=== PATIENT | male | born 1965 | race Caucasian/White ===

== ENCOUNTER 2020-08-01 09:30 | Emergency (ER) | payer BC, SELFPAY ==
[2020-08-01 09:55] VITALS: BP 153/69; PULSE 83; RESP 16; TEMP 37; O2SAT 99; BMI 38.0
--- NOTE | 2020-08-01 10:21 | HMH.EDUTC ---
[facility] Disposition Clinical Impression: Exposure to COVID-19 virus Disposition: Home, Self-Care Condition on Discharge: Good Instructions: Preventing the Spread of Coronavirus Discharge Instructions Additional Instructions: Drink plenty of fluids. Take tylenol for pain or fever. Follow up with your regular doctor. GO TO THE ER FOR ANY WORSENING SYMPTOMS Referrals: Catarina Sosa PA [Primary Care Provider] - Forms: Work/School Release Time of Disposition: 10:23 Medical Decision Making - Medical Records Medical records reviewed: No: I reviewed the patient's medical records. - Dionte Inquiry Pt receiving controlled substance: No Vital Signs: 08/01/20 09:55 08/01/20 10:33 Temperature 98.6 F 98.6 F Temperature Source Oral Pulse Rate 83 Pulse Rate [Right Brachial] 83 Respiratory Rate 16 16 Blood Pressure 153/69 H Blood Pressure [Right Arm] 153/69 H Blood Pressure Mean [Right Arm] 97 Blood Pressure Source [Right Arm] Automatic Cuff Blood Pressure Position [Right Arm] Sitting 02 Sat by Pulse Oximetry 99 Oxygen Delivery Method Room Air Orders (Tests/Meds): ORDERS Category Date Time Status Covid-19 Nasal PCR Sendout Riky Routine Lab 08/01/20 09:50 Received [facility] HPI - General Stated complaint: covid exposure 2 days ago Time Seen by Provider: 08/01/20 09:55 Mode of Arrival: Ambulatory Source of Information: Patient Limitations: No Limitations Description of Symptoms (Recalled from Triage Doc. by RN): PATIENT REQUESTING COVID TEST D/T EXPOSURE. DENIES SYMPTOMS HEENT Symptoms (Recalled from RN notes): No Resp Symptoms (Recalled from RN notes): No Skin Symptoms (Recalled from RN notes): No MS Symptoms (Recalled from RN notes): No Functional Status (Recalled from RN notes): WNL - History of Present Illness Provider Complaint: He denies any symptoms. He states that 3 days ago he spent almost all day with his uncle, then the next day his uncle came down with covid and now he is very sick and in the hospital. This patient denies any symptoms. - Related Data Allergies Allergy/AdvReac Type Severity Reaction Status Date / Time No Known Allergies Allergy Verified 08/01/20 10:08 - Worker's Comp Is this a Worker's Comp case?: No [facility] History - Hepatitis A Screen Drug use history?: No High risk sexual behaviors?: No History of sexually transmitted infection?: No Currently employed?: No Childcare worker?: No Do you have indoor plumbing?: Yes Do you have electricity?: Yes Attestation statement:: This patient has been screened for Hepatitis A risk factors. I have reviewed the patient's past medical history: Yes - Social History Alcohol Intake: never Occupational Status: other ROS Obtained: Yes All systems reviewed & no additional complaints - Constitutional Constitutional: Reports system reviewed and no additional complaints, except as docu - Eyes Eyes: Reports system reviewed and no additional complaints, except as docu - ENT Ears, Nose, Mouth, and Throat: Reports system reviewed and no additional complaints, except as docu - Cardiovascular Cardiovascular: Reports system reviewed and no additional complaints, except as docu - Respiratory Respiratory: Yes system reviewed and no additional complaints, except as docu - Gastrointestinal Gastrointestingal: Reports: system reviewed and no additional complaints, except as docu Physical Exam - General General appearance: alert, in no apparent distress - Head Head exam: atraumatic, normocephalic, normal inspection - Eye Eye exam: Present: normal appearance, PERRL, EOMI - ENT ENT exam: Present: normal exam, normal oropharynx, mucous membranes moist, TM's normal bilaterally, normal external ear exam - Neck Neck exam: Present: normal inspection, full ROM, trachea midline. Absent: meningismus, lymphadenopathy - Chest Chest inspection: Present: normal inspection, symmetric chest wall rise. Absent:
[2020-08-01 10:33] VITALS: BP 153/69; PULSE 83; RESP 16; TEMP 37; O2SAT 99
[2020-08-02 13:36] LABS: Covid-19 Nasal PCR Sendout Lex NOT DETECTED
== END 2020-08-01 10:35 | disposition home or self-care (01) ==
PROVIDERS: Emergency Provider Nurse Practitioner Family; PCP Physician Assistant Medical
DX: Z20.828 Contact with and (suspected) exposure to other viral communicable diseases (principal)
CPT/HCPCS: 99201; U0004

== ENCOUNTER 2021-01-07 12:50 | Observation (INO) | payer BC, SELFPAY ==
[2021-01-07] VITALS (12 sets, daily range): BP systolic 133–160; BP diastolic 84–105; PULSE 60–90; RESP 14–24; TEMP 36.4–37.3; O2SAT 94–98; BMI 208.2; BMI 34.0
--- NOTE | 2021-01-07 12:53 | HMH.EDCP ---
ED Disposition Clinical Impression: Labored breathing Chest pain Qualifiers: Chest pain type: unspecified Qualified Code(s): R07.9 - Chest pain, unspecified Back pain Qualifiers: Back pain location: low back pain Chronicity: acute Back pain laterality: bilateral Sciatica presence: without sciatica Qualified Code(s): M54.5 - Low back pain Disposition: Admitted as Observation Condition on Discharge: Good Time of Disposition: 17:26 - Critical Care Critical Care Time: No Attestation: On , the high probability of a clinically significant, sudden or life threatening deterioration of the following system(s) required my full and direct attention, intervention and personal management. The time I documented below is in addition to time spent performing reported procedures but includes the following listed in this critical care notation. Medical Decision Making - Dionte Inquiry Pt receiving controlled substance: No Vital Signs: 01/07/21 12:51 01/07/21 13:31 01/07/21 14:01 Temperature 99.1 F Temperature Source Oral Pulse Rate 60 74 Pulse Rate [Radial] 79 Respiratory Rate 24 16 16 Blood Pressure 152/100 H 136/101 H Blood Pressure [Right Arm] 159/99 H Blood Pressure Mean 117 112 Blood Pressure Mean [Right Arm] 119 Blood Pressure Position [Right Arm] Sitting 02 Sat by Pulse Oximetry 98 95 96 Oxygen Delivery Method Room Air 01/07/21 14:19 01/07/21 14:30 01/07/21 15:28 Temperature Temperature Source Pulse Rate 78 81 77 Pulse Rate [Radial] Respiratory Rate 14 18 Blood Pressure 143/88 H 145/84 H 133/100 H Blood Pressure [Right Arm] Blood Pressure Mean 104 96 109 Blood Pressure Mean [Right Arm] Blood Pressure Position [Right Arm] 02 Sat by Pulse Oximetry 96 94 L 96 Oxygen Delivery Method 01/07/21 15:31 Temperature Temperature Source Pulse Rate 69 Pulse Rate [Radial] Respiratory Rate 18 Blood Pressure 155/100 H Blood Pressure [Right Arm] Blood Pressure Mean 114 Blood Pressure Mean [Right Arm] Blood Pressure Position [Right Arm] 02 Sat by Pulse Oximetry 97 Oxygen Delivery Method - Lab Data Lab results reviewed: Yes: I reviewed the patient's lab results. Lab Results 01/07/21 13:00: WBC 12.5 H, RBC 4.98, Hgb 15.5, Hct 46.2, MCV 92.9, MCH 31.2, MCHC 33.5, RDW 13.3, Plt Count 216, MPV 7.4, Neut % (Auto) 77.8, Lymph % (Auto) 17.8, [place] % (Auto) 2.6, Eos % (Auto) 1.2, Baso % (Auto) 0.6, Neut # (Auto) 9.8 H, Lymph # (Auto) 2.2, [place] # (Auto) 0.3, Eos # (Auto) 0.2, Baso # (Auto) 0.1 01/07/21 13:00: Sodium 140, Potassium 3.9, Chloride 107, Carbon Dioxide 27, Anion Gap 9.9, BUN 20, Creatinine 1.00, Estimated Creat Clear -31 L, Estimated GFR 78, Est GFR ( Amer) 95, Glucose 128 H, Calcium 9.8, Total Bilirubin 0.5, AST 32, ALT 41, Alkaline Phosphatase 88, Troponin I < 0.01, Total Protein 7.3, Albumin 4.6, Globulin 2.7, Albumin/Globulin Ratio 1.7 01/07/21 13:00: Urine Color Yellow, Urine Appearance Clear, Urine pH 6.0, Ur Specific [place] 1.025, Urine Protein Negative, Urine Glucose (UA) Negative, Urine Ketones Negative, Urine Blood Negative, Urine Nitrate Negative, Urine Bilirubin Negative, Urine Urobilinogen 1.0, Ur Leukocyte Esterase Negative, Urine RBC None, Urine WBC None, Ur Squamous Epith Cells None, Amorphous Sediment 1+, Urine Bacteria None 01/07/21 15:17: Troponin I < 0.01 01/07/21 15:17: Chlamy pneumoniae PCR Not detected, Adenovirus (PCR) Not detected, B. pertussis DNA (PCR) Not detected, Coronavirus OC43 (PCR) Not detected, Coronavirus HKU1 (PCR) Not detected, Coronavirus 229E (PCR) Not detected, SARS-CoV-2 (PCR) Not detected, Coronavirus NL63 (PCR) Not detected, Human Metapneumovir PCR Not detected, Influenza A (H1) PCR Not detected, Influ A (H1N1/09) PCR Not detected, Influenza A (H3) PCR Not detected, Influenza Type A (PCR) Not detected, Influenza Type B (PCR) Not detected, M. pneumoniae (PCR) Not detected, Parainfluenza 1 (PCR) Not detected, Parainfluenza 2 (PCR)
--- NOTE | 2021-01-07 12:54 | XR_ITS ---
PROCEDURE: XR CHEST PORTABLE CLINICAL HISTORY: cp Chest pain COMPARISON: No exams were available for comparison FINDINGS: The cardiomediastinal silhouette and pulmonary vascularity are within normal limits. The lungs are clear without infiltrates, suspicious nodules, or pleural effusions. No acute bony abnormalities. IMPRESSION: No acute findings. Dictated by: Anish Zabala MD 01/07/2021 13:55 Anish Zabala MD in [facility] 01/07/2021 13:55
[2021-01-07 13:13] LABS: Basophils # 0.1 K/mm3 (0-0.2); Basophils % 0.6 % (0.1-2.0); Eosinophils # 0.2 K/mm3 (0.0-0.4); Eosinophils % 1.2 % (0.1-12.0); Hematocrit 46.2 % (42.0-52.0); Hemoglobin 15.5 g/dL (14.1-18.0); Lymphocytes # 2.2 K/mm3 (0.7-4.5); Lymphocytes % 17.8 % (10-50); Mean Corpuscular HGB Conc 33.5 g/dL (31.8-35.4); Mean Corpuscular Hemoglobin 31.2 pg (27.0-31.2); Mean Corpuscular Volume 92.9 fl (80-94); Mean Platelet Volume 7.4 fl (7.4-10.4); Monocytes # 0.3 K/mm3 (0.1-1.0); Monocytes % 2.6 % (1.7-9.3); Neutrophils # 9.8 K/mm3 (1.8-7.8); Neutrophils % 77.8 % (37.0-80.0); Platelet Count 216 K/mm3 (142-424); Red Blood Count 4.98 M/mm3 (4.60-6.20); Red Cell Distribution Width 13.3 % (11.5-17.5); White Blood Count 12.5 K/mm3 (4.8-10.8)
[2021-01-07 13:18] LABS: Chloride 107 mmol/L (98-107)
[2021-01-07 13:19] LABS: Potassium 3.9 mmoL/L (3.5-5.1); Sodium 140 mmol/L (136-145)
[2021-01-07 13:21] LABS: Blood Urea Nitrogen 20 mg/dl (9-20); Creatinine Clearance Estimated -31 mL/min (50-200); Estimated Glomerular Filt Rate 78 ml/min (>60); GFR (African American) 95 ML/MIN (>60)
[2021-01-07 13:22] LABS: Alanine Aminotransferase 41 U/L (12-78); Albumin Level 4.6 g/dl (3.5-5.0); Albumin/Globulin Ratio 1.7 (1.1-1.8); Alkaline Phosphatase 88 U/L (38-126); Anion Gap 9.9 mEq/L (5-15); Aspartate Amino Transferase 32 U/L (17-59); Bilirubin,Total 0.5 mg/dl (0.2-1.3); Calcium 9.8 mg/dl (8.4-10.2); Carbon Dioxide 27 mmol/L (22.0-30.0); Globulin 2.7 g/dL (1.3-3.2); Glucose 128 mg/dl (74-100); Total Protein,Serum 7.3 g/dl (6.3-8.2)
[2021-01-07 13:37] LABS: Troponin I < 0.01 ng/ml (0.00-0.034)
[2021-01-07 13:43] LABS: Microscopic, Urine URINE MICROSCOPIC (MICROSCOPIC)
[2021-01-07 13:45] LABS: Appearance,Urine CLEAR (Clear); Bilirubin,Urine Negative (Negative); Blood, Urine Negative (Negative); Color,Urine YELLOW (Yellow); Glucose,Urine (UA) Negative (Negative); Ketones,Urine Negative (Negative); Leukocyte Esterase,Urine Negative (Negative); Nitrate,Urine Negative (Negative); Protein,Urine Negative (Negative); Specific Gravity, Urine 1.025 (1.005-1.030)
[2021-01-07 13:52] LABS: Amorphous Sediment,Urine 1+ /lpf
--- NOTE | 2021-01-07 14:14 | CT_ITS ---
PROCEDURE: CT ANGIO CHEST CLINCIAL INDICATION: CP, SOB Chest pain, shortness of breath, smoker COMPARISON: No exams were available for comparison TECHNIQUE: IV Contrast: 70ML Isovue 370 Axial images obtained with sagittal and coronal reformats. All CT scans at the facility use one or more dose reduction, viz: automated exposure control, ma/kV adjustment per patient size (including targeted exams where dose is matched to indication, i.e. head), or iterative reconstruction technique. FINDINGS: HEART AND MEDIASTINAL STRUCTURES: No evidence of pulmonary embolus, aortic aneurysm, or aortic dissection.. Coronary artery calcifications and/or stents noted LUNGS AND PLEURAL SPACES: Unremarkable. BONY STRUCTURES: No acute bony abnormalities apparent. UPPER ABDOMEN: Unremarkable. ADDITIONAL FINDINGS: No other significant abnormalities. IMPRESSION: No acute finding. No evidence of pulmonary embolus. Dictated by: Anish Zabala MD 01/08/2021 06:18 Anish Zabala MD in [facility] 01/08/2021 06:18
--- NOTE | 2021-01-07 14:14 | CT_ITS ---
PROCEDURE: CT ABDOMEN PELVIS W CON CLINICAL INDICATION: kidney pain Pain, kidney pain COMPARISON: No exams were available for comparison TECHNIQUE: IV Contrast: 75ML Isovue 370 Oral Contrast None Axial images obtained with sagittal and coronal reformats. All CT scans at the facility use one or more dose reduction, viz: automated exposure control, ma/kV adjustment per patient size (including targeted exams where dose is matched to indication, i.e. head), or iterative reconstruction technique. FINDINGS: LOWER THORAX: Coronary artery calcification and/or stents ABDOMEN & PELVIS: 12 mm hypodensity right hepatic lobe posteriorly indeterminate. The liver has an otherwise unremarkable appearance. There has been a prior cholecystectomy. Mild splenomegaly at 14 cm. The adrenal glands and pancreas have an unremarkable appearance. No renal or ureteral calculi. No hydronephrosis or renal mass. There is mild thickening of the wall the jejunum proximally. Mild amount of retained colonic feces. There is given history of prior appendectomy. Scattered colonic diverticula noted. No evidence of diverticulitis. No acute bony findings. IMPRESSION: 1. Possible enteritis. 2. 12 mm hypodensity right hepatic lobe incompletely evaluated. MRI with hemangioma protocol may further evaluate. Dictated by: Anish Zabala MD 01/08/2021 06:26 Anish Zabala MD in [facility] 01/08/2021 06:26
--- NOTE | 2021-01-07 15:08 | PC.NURSE ---
PT STILL IN ct
--- NOTE | 2021-01-07 15:28 | PC.NURSE ---
PT UNABLE TO GIVEN LIST OF MEDICATIONS. CALLED PT'S PHARMACY, [facility], CLOSED TODAY
[2021-01-07 15:30] LABS: Adenovirus,PCR Not Detected (NotDetected); Bordetella Pertussis Not Detected (NotDetected); Chlamydophila Pneumoniae, PCR Not Detected (NotDetected); Coronavirus 19, PCR Not Detected (NotDetected); Coronavirus 229E Not Detected (NotDetected); Coronavirus NL63 Not Detected (NotDetected); Coronavirus OC43 Not Detected (NotDetected); Coronovirus HKU1,PCR Not Detected (NotDetected); Human Metapneumovirus Not Detected (NotDetected); Influenza A, PCR Not Detected (NotDetected); Influenza AH1, 2009 Not Detected (NotDetected); Influenza AH1, PCR Not Detected (NotDetected); Influenza AH3,PCR Not Detected (NotDetected); Influenza B, PCR Not Detected (NotDetected); Mycoplasma Pneumoniae, PCR Not Detected (NotDetected); Parainfluenza 1, PCR Not Detected (NotDetected); Parainfluenza 2, PCR Not Detected (NotDetected); Parainfluenza 3, PCR Not Detected (NotDetected); Parainfluenza 4, PCR Not Detected (NotDetected); Respiratory Syncytial Virus Not Detected (NotDetected); Rhinovirus/Enterovirus Not Detected (NotDetected)
[2021-01-07 15:55] LABS: Troponin I < 0.01 ng/ml (0.00-0.034)
--- NOTE | 2021-01-07 16:00 | PC.NURSE ---
PT DENIES ANY RELIEF OF SYMPTOMS
--- NOTE | 2021-01-07 16:59 | PC.NURSE ---
Dr Holguin speaking with Dr Ball for admission.
--- NOTE | 2021-01-07 17:20 | PC.NURSE ---
REPORT CALLED TO FLOOR
[2021-01-07 17:29] LABS: Procalcitonin 0.062 ng/mL (0.0-2.0)
--- NOTE | 2021-01-07 18:35 | PC.NURSE ---
This nurse was unable to perform pt's med rec. Pt is not aware of his home medications, pt states I take something for blood pressure, but I can't remember. Pt lives in [place] and has nobody to bring his home medications for verification.
--- NOTE | 2021-01-07 19:11 | PC.NURSE ---
THIS RN PROVIDED WC REPORT TO TATO BARRERA.
[2021-01-07 19:21] LABS: Troponin I < 0.01 ng/ml (0.00-0.034)
[2021-01-08] VITALS (11 sets, daily range): BP systolic 110–160; BP diastolic 66–95; PULSE 61–84; RESP 16–24; TEMP 36.5–36.9; O2SAT 96–98; BMI 34.2
--- NOTE | 2021-01-08 04:01 | PC.NURSE ---
A&OX4. PT TOLERATING RA WELL. PT HAS C/O CONTINUOUS PAIN IN HIS CHEST AND BACK, WHICH INCREASES WITH COUGH. PT HAS DRY INTERMITTENT COUGH T/O SHIFT. PT HAS HAD NO OTHER C/O THUS FAR. PT RESTING IN BED AT THIS TIME. VSS WILL CONTINUE TO MONITOR.
--- NOTE | 2021-01-08 06:34 | HMH.HP ---
*Admission Date: 01/07/21 *Chief complaint: Chest and back pain *History of present illness: 55-year-old male with history of coronary artery disease, hypertension, COPD presented to the emergency department with chest and back pain along with difficulty breathing that have been present for approximately 24 hours. 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 He also noted pain radiating down into his kidneys . Patient has hypertension but cannot name his medicines. Patient has COPD and uses a rescue inhaler. He presented to our emergency department. He underwent a work-up that was essentially negative. However patient still looked quite labored in regards to his respiratory effort and decision was made to keep him for observation. Patient reports a history of COPD and having seen multiple pulmonologists over the last several years. He reports he has been told area gets to the top of his lungs but not the bottom . Patient smokes 4 to 5 cigarettes/day and has since the age of 18 [facility] History I have reviewed the patient's past medical history: Yes Medical History: Reports:: Atherosclerotic Heart Disease, Chronic Obstructive Pulmonary Disease (COPD), Coronary Artery Disease, Hyperlipidemia, Hypertension Denies:: Cancer, Diabetes Mellitus Type 1, Diabetes Mellitus Type 2, MRSA *Have you ever received a pneumonia vaccine?: No *Have you received a flu vaccine this season?: No Laterality Cases: Right: Carpal Tunnel Release Other Surgeries: Yes: Appendectomy, Cardiac Catheterization, Cholecystectomy, Colonoscopy Amputation: No - *Social History Last grade of school completed: 11th or 12th Smoking Status: Current every day smoker Tobacco Type: cigarettes # Packs/Day (cigarettes): 1 Alcohol Intake: current Alcohol Intake Frequency:: holidays/special occasions only *Occupational Status:: employed *Travel in the last 8 weeks: None Family Hx:: Asthma, Cancer, Heart Attack, Hyperlipidemia, Hypertension Review of Systems - Constitutional Reports body ache(s), Reports lack of energy, Denies anorexia, Denies chills, Denies malaise, Denies night sweats - Eyes Denies change in vision - ENT Denies difficulty swallowing - *Cardiovascular Reports chest pain at rest - *Respiratory Reports chest congestion, Reports cough, Reports shortness of breath, Denies change in phlegm color - *Gastrointestinal Denies abdominal pain, Denies belching, Denies bloating, Denies heartburn - *Genitourinary Denies blood in urine - *Musculoskeletal Denies joint pain - *Neurologic Denies abnormal walking Meds Home Medications Medication Instructions Recorded Confirmed Type Unobtainable 01/07/21 01/07/21 History Allergies Allergy/AdvReac Type Severity Reaction Status Date / Time No Known Allergies Allergy Verified 08/01/20 10:08 Exam Vital signs and Labs for Last 24 Hours: Temp Pulse Resp BP Pulse Ox 97.7 F 80 20 110/66 98 01/08/21 03:58 01/08/21 04:00 01/08/21 03:58 01/08/21 03:58 01/08/21 03:58 Laboratory Results - last 24 hr 01/07/21 13:00: WBC 12.5 H, RBC 4.98, Hgb 15.5, Hct 46.2, MCV 92.9, MCH 31.2, MCHC 33.5, RDW 13.3, Plt Count 216, MPV 7.4, Neut % (Auto) 77.8, Lymph % (Auto) 17.8, [place] % (Auto) 2.6, Eos % (Auto) 1.2, Baso % (Auto) 0.6, Neut # (Auto) 9.8 H, Lymph # (Auto) 2.2, [place] # (Auto) 0.3, Eos # (Auto) 0.2, Baso # (Auto) 0.1 01/07/21 13:00: Sodium 140, Potassium 3.9, Chloride 107, Carbon Dioxide 27, Anion Gap 9.9, BUN 20, Creatinine 1.00, Estimated Creat Clear -31 L, Estimated GFR 78, Est GFR ( Amer) 95, Glucose 128 H, Calcium 9.8, Total Bilirubin 0.5, AST 32, ALT 41, Alkaline Phosphatase 88, Troponin I < 0.01, Total Protein 7.3, Albumin 4.6, Globulin 2.7, Albumin/Globulin Ratio 1.7 01/07/21 13:00: Urine Color Yellow, Urine Appearance Clear, Urine pH 6.0, Ur Specific [place] 1.025, Urine P
[2021-01-08 06:35] LABS: Chloride 106 mmol/L (98-107); Sodium 140 mmol/L (136-145)
[2021-01-08 06:36] LABS: Potassium 3.9 mmoL/L (3.5-5.1)
[2021-01-08 06:39] LABS: Blood Urea Nitrogen 18 mg/dl (9-20); Carbon Dioxide 29 mmol/L (22.0-30.0); Creatinine Clearance Estimated 167 mL/min (50-200); Estimated Glomerular Filt Rate 101 ml/min (>60); GFR (African American) 122 ML/MIN (>60); Glucose 107 mg/dl (74-100)
[2021-01-08 06:41] LABS: Basophils # 0.1 K/mm3 (0-0.2); Basophils % 0.5 % (0.1-2.0); Eosinophils # 0.3 K/mm3 (0.0-0.4); Eosinophils % 2.2 % (0.1-12.0); Hemoglobin 15.1 g/dL (14.1-18.0); Lymphocytes # 2.9 K/mm3 (0.7-4.5); Lymphocytes % 25.8 % (10-50); Mean Corpuscular HGB Conc 33.5 g/dL (31.8-35.4); Mean Corpuscular Hemoglobin 31.5 pg (27.0-31.2); Mean Corpuscular Volume 94.2 fl (80-94); Mean Platelet Volume 7.5 fl (7.4-10.4); Monocytes # 0.4 K/mm3 (0.1-1.0); Monocytes % 3.2 % (1.7-9.3); Neutrophils # 7.7 K/mm3 (1.8-7.8); Neutrophils % 68.3 % (37.0-80.0); Platelet Count 233 K/mm3 (142-424); Red Blood Count 4.78 M/mm3 (4.60-6.20); Red Cell Distribution Width 13.5 % (11.5-17.5); White Blood Count 11.3 K/mm3 (4.8-10.8)
--- NOTE | 2021-01-08 06:53 | HMH.PHAVTE ---
[facility] VTE Monitoring - Patient Demographics Admission date: 01/07/21 Report Date: 01/08/21 Time: 06:53 Allergies/Adverse Reactions: Patient Allergies No Known Allergies Allergy (Verified 08/01/20 10:08) Height: 1.8 m Weight: 110.79 kg Patient Problems: Current Active Problems Chest pain (Acute) Back pain (Acute) Labored breathing (Acute) COPD exacerbation (Acute) Coronary artery disease (Acute) Hypertension (Acute) - VTE Risk Labs: VTE Related Lab Results Hgb 15.5 g/dL (14.1-18.0) 01/07/21 13:00 Hct 46.2 % (42.0-52.0) 01/07/21 13:00 Plt Count 216 K/mm3 (142-424) 01/07/21 13:00 BUN 18 mg/dl (9-20) 01/08/21 05:58 Creatinine 0.80 mg/dl (0.66-1.25) 01/08/21 05:58 Estimated Creat Clear 167 mL/min (50-200) 01/08/21 05:58 VTE Score: 4 VTE Risk Level: Low Risk - Prophylaxis VTE Prophylaxis Ordered?: Yes Types of VTE Prophylaxis: IPCS Thigh High, Pharmacological Location of Applied Device: Bilateral Lower Extremeties Pharmacologic Type: Enoxaparin
--- NOTE | 2021-01-08 10:47 | HMH.PHAINT ---
MEDICATION RECONCILIATION COMPLETED ON PATIENT USING EXTERNAL FILL HISTORY FROM PHARMACY, CALLING [facility] IN [facility], AND PATIENT INTERVIEW. -MELVIN ROSSID
--- NOTE | 2021-01-08 12:51 | ECG_ITS ---
APPROVED REPORT Exam: Resting ECG HR:76 bpm ECG Measurements Heart Rate 76 AXES MN 156 P 35 QRSd 90 QRS 60 QT 364 T 14 QTc 409 Conclusion Normal sinus rhythm Normal ECG Electronically signed by : Christopher Salcedo, 01/11/2021 14:01:53
--- NOTE | 2021-01-08 19:26 | PC.NURSE ---
pt had an ok today. ambulates independently t/o room. pt has no new complaints. still sob but better than this am, and still has the chest pain when coughing. vss. will cont. to monitor.
[2021-01-09 02:03] VITALS: PULSE 70
--- NOTE | 2021-01-09 02:42 | PC.NURSE ---
Pt currently sleeping at this time. Pt has c/o soa and a headache this shift. Medicated per nov. Breathing Tx Q4 via RT. A fan was placed in room for comfort. Pt stated that it has helped some. Room is saturated with cologne that pt continues to spray. Pt educated on prior shift by nurse and RT the need decrease use. Reinforcement needed. Pt remains on RA. Lungs noted to be diminished with some scattered expiratory wheezing noted. BS active. No other concerns. Will continue to monitor.
[2021-01-09 04:00] VITALS: BP 148/90; PULSE 85; RESP 20; TEMP 36.4
[2021-01-09 06:00] VITALS: BMI 34.3
[2021-01-09 06:33] VITALS: PULSE 80; PULSE 81
--- NOTE | 2021-01-09 06:54 | HMH.DCSUM ---
General - General Admission date:: 01/07/21 Discharge date: 01/09/21 HPI HPI: 55-year-old male with history of coronary artery disease, hypertension, COPD presented to the emergency department with chest and back pain along with difficulty breathing that have been present for approximately 24 hours. 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 He also noted pain radiating down into his kidneys . Patient has hypertension but cannot name his medicines. Patient has COPD and uses a rescue inhaler. He presented to our emergency department. He underwent a work-up that was essentially negative. However patient still looked quite labored in regards to his respiratory effort and decision was made to keep him for observation. Patient reports a history of COPD and having seen multiple pulmonologists over the last several years. He reports he has been told area gets to the top of his lungs but not the bottom . Patient smokes 4 to 5 cigarettes/day and has since the age of 18 Hospital Course Hospital Course: Patient was admitted for observation. On the morning of the patient was found to be wheezing with increased respiratory effort. He claimed a history of COPD and was diagnosed to COPD exacerbation. Patient was started on Solu-Medrol and duo nebs as well as IV azithromycin. Within 24 hours patient had significantly improved and while he still complained of feeling very tired with body aches he had improved airflow and wheezing had resolved. Patient was discharged home. He was told not to work the rest of the week. He will follow-up with his primary care physician this week. Objective Vital signs: Temp Pulse Resp BP Pulse Ox 97.6 F 81 20 148/90 H 98 01/09/21 04:00 01/09/21 06:33 01/09/21 04:00 01/09/21 04:00 01/08/21 20:00 no acute distress - *Routine Respiratory Exam Present: CTA bilaterally - *Routine Cardiovascular Exam Present: RRR Results Labs on day of discharge: Labs from last 24 hours 01/08/21 01/08/21 05:58 05:58 WBC 11.3 H RBC 4.78 Hgb 15.1 Hct 45.0 MCV 94.2 H MCH 31.5 H MCHC 33.5 RDW 13.5 Plt Count 233 MPV 7.5 Neut % (Auto) 68.3 Lymph % (Auto) 25.8 [place] % (Auto) 3.2 Eos % (Auto) 2.2 Baso % (Auto) 0.5 Neut # (Auto) 7.7 Lymph # (Auto) 2.9 [place] # (Auto) 0.4 Eos # (Auto) 0.3 Baso # (Auto) 0.1 Anion Gap 5.0 DS: Diagnosis - Discharge Diagnosis (1) COPD exacerbation Status: Acute (2) Coronary artery disease Status: Acute (3) Hypertension Status: Acute Discharge Plan - Patient Discharge Instructions ACTIVITY: Continue current activity DIET: continue same diet Patient Instructions: DI for Chronic Obstructive Pulmonary Disease, DI for High Blood Pressure, DI for Chest Pain, Reasons to Quit Smoking, How to Quit Smoking - Follow up Plan Unknown provider or service follow up:: 01/09/21 06:56 Your Primary Care Physician Disposition: Home, Self-Long-Term Medications: Home Medications Medication Instructions Recorded Confirmed Type Aspirin [Aspirin 81mg EC Tab] 81 mg PO DAILY 01/08/21 01/08/21 History Isosorbide Mononitrate [Isosorbide 30 mg PO DAILY 01/08/21 01/08/21 History Mononitrate ER] lisinopriL [Zestril 10mg Tab] 10 mg PO DAILY 01/08/21 01/08/21 History Albuterol Sulfate [Albuterol 18 gm IH Q4HP PRN #1 hfa.aer.ad 01/09/21 Rx Sulfate Hfa] Azithromycin 250 mg PO DAILY #3 tab 01/09/21 Rx predniSONE [Prednisone 20mg 40 mg PO DAILY #10 tab 01/09/21 Rx Tab] Prescriptions/Medication Reconciliation: New Albuterol Sulfate [Albuterol Sulfate Hfa] 18 gm IH Q4HP PRN #1 hfa.aer.ad PRN Reason: Shortness Of Breath Or Wheezing Azithromycin 250 mg PO DAILY #3 tab predniSONE [Prednisone 20mg Tab] 40 mg PO DAILY #10 tab Continued
[2021-01-09 08:00] VITALS: BP 147/80; PULSE 75; RESP 18; TEMP 36.7; O2SAT 97
== END 2021-01-09 10:41 | disposition home or self-care (01) ==
LOC: ER 13:37 → 2ND 17:27
PROVIDERS: Admitting Provider Family Medicine; Emergency Provider Family Medicine; PCP Surgery Surgical Oncology; Visit Provider Family Medicine
DX: J44.1 Chronic obstructive pulmonary disease with (acute) exacerbation (principal); I25.10 Atherosclerotic heart disease of native coronary artery without angina pectoris; I10 Essential (primary) hypertension; Z72.0 Tobacco use; Z79.899 Other long term (current) drug therapy
CPT/HCPCS: 36415; 71045; 71275; 74177; 80048; 80053; 81001; 84145; 84484; 85025; 87581; 87633; 87798; 93005; 94640; 99284; G0378; J0456; Q9967

== ENCOUNTER 2021-08-19 12:06 | Emergency (ER) | payer BC, SELFPAY ==
[2021-08-19 14:54] VITALS: BP 149/93; PULSE 71; RESP 16; O2SAT 98; BMI 32.8
--- NOTE | 2021-08-19 14:58 | HMH.EDUTC ---
[facility] [place] Disposition Clinical Impression: Viral syndrome COPD (chronic obstructive pulmonary disease) Qualifiers: COPD type: unspecified COPD Qualified Code(s): J44.9 - Chronic obstructive pulmonary disease, unspecified Disposition: Home, Self-Care Condition on Discharge: Good Instructions: Chronic Obstructive Pulmonary Disease, DI for COVID-19 (Suspected or Confirmed ), Preventing the Spread of Coronavirus Discharge Instructions Additional Instructions: Drink plenty of fluids. Take tylenol or ibuprofen for pain or fever. Take the medications as directed. Follow up with your regular doctor. The cough medication (promethazine dm) will make you drowsy, so don't drive or operate heavy machinery after taking it. GO TO THE ER FOR ANY WORSENING SYMPTOMS Quarantine until you know the results of your covid-19 test. If it is positive, the health department should call you and give you further instructions about your length of Quarantine and other things. Notify your school or workplace of your results and follow their instructions regarding return to work/school. Prescriptions: Albuterol Sulfate [Albuterol Sulfate Hfa] 2 puffs IH Q6HP PRN 30 Days #1 each PRN Reason: Shortness Of Breath Transmission Status: Received by [employer] # Promethazine/Dextromethorphan [Promethazine-Dm Syrup] 5 ml PO Q6HP PRN #240 ml PRN Reason: Cough Transmission Status: Received by [employer] # methylPREDNISolone [Medrol] 4 mg PO DIRECTED 6 Days #21 packet Transmission Status: Received by [employer] # Azithromycin [Z-Justus 250mg Tab*] 250 mg PO UD DOSE PK #6 tab Transmission Status: Received by [employer] # Referrals: Provider,Referral, [Primary Care Provider] - Forms: Work/School Release Time of Disposition: 15:08 Medical Decision Making - Medical Records Medical records reviewed: No: I reviewed the patient's medical records. - Dionte Inquiry Pt receiving controlled substance: No Vital Signs: 08/19/21 14:54 08/19/21 15:16 Temperature 98.3 F Pulse Rate 71 Pulse Rate [Right Brachial] 71 Respiratory Rate 16 18 Blood Pressure 149/93 H Blood Pressure [Right Arm] 149/93 H Blood Pressure Mean [Right Arm] 111 Blood Pressure Source [Right Arm] Automatic Cuff Blood Pressure Position [Right Arm] Sitting 02 Sat by Pulse Oximetry 98 Oxygen Delivery Method Room Air Room Air - Lab Data Lab results reviewed: Yes: I reviewed the patient's lab results. Orders (Tests/Meds): ED MEDICATIONS Discontinued Medications Generic Name Dose Route Start Last Admin Trade Name Freq PRN Reason Stop Dose Admin Acetaminophen 1,000 mg 08/19/21 15:10 Acetaminophen 500mg Tab PO 08/19/21 15:11 ONCE ONE Acetaminophen 975 mg 08/19/21 15:13 08/19/21 15:15 Acetaminophen 325mg Tab PO 08/19/21 15:14 975 mg ONCE ONE Administration [facility] [place] HPI - General Stated complaint: covid test/symptoms Time Seen by Provider: 08/19/21 15:02 - History of Present Illness Provider Complaint: He states that he has been feeling bad since night before last. He was trying to go to work when he was noted to have a fever. He was sent home. Since then he has had sore throat, cough, chest congestion and body aches. - Related Data Home Medications Medication Instructions Recorded Confirmed Aspirin [Aspirin 81mg EC Tab] 81 mg PO DAILY 01/08/21 01/08/21 Isosorbide Mononitrate [Isosorbide 30 mg PO DAILY 01/08/21 01/08/21 Mononitrate ER] lisinopriL [Zestril 10mg Tab] 10 mg PO DAILY 01/08/21 01/08/21 Previous Rx's Medication Instructions Recorded Albuterol Sulfate [Albuterol 18 gm IH Q4HP PRN #1 hfa.aer.ad 01/09/21 Sulfate Hfa] Azithromycin 250 mg PO DAILY #3 tab 01/09/21 predniSONE [Prednisone 20mg 40 mg PO DAILY #10 tab 01/09/21 Tab] Albuterol Sulfate [Albuterol 2 puffs IH Q6HP PRN 30 Days #1 each 08/19/21 Sulfate Hfa]
[2021-08-19 15:16] VITALS: BP 149/93; PULSE 71; RESP 18; TEMP 36.8; O2SAT 98
== END 2021-08-19 15:15 | disposition home or self-care (01) ==
PROVIDERS: Emergency Provider Nurse Practitioner Family
DX: B34.9 Viral infection, unspecified (principal); J44.9 Chronic obstructive pulmonary disease, unspecified; J02.9 Acute pharyngitis, unspecified; I25.10 Atherosclerotic heart disease of native coronary artery without angina pectoris; E78.5 Hyperlipidemia, unspecified; I10 Essential (primary) hypertension; F17.210 Nicotine dependence, cigarettes, uncomplicated; Z79.899 Other long term (current) drug therapy
CPT/HCPCS: 99202; C9803; G0463; U0003; U0005

== ENCOUNTER 2021-08-28 11:53 | Emergency (ER) | payer BC, SELFPAY ==
--- NOTE | 2021-08-28 12:06 | XR_ITS ---
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 ; Additional info: Accident TECHNIQUE: Imaging protocol: XR Left tibia and fibula. Views: 2 views. COMPARISON: CR XR ANKLE LT MIN 3V 08/28/2021 12:28 PM FINDINGS: Bones/joints: No acute fracture or malalignment. Soft tissues: Normal. IMPRESSION: No acute fracture or malalignment.
--- NOTE | 2021-08-28 12:06 | XR_ITS ---
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 ; Additional info: Accident TECHNIQUE: Imaging protocol: XR Left foot. Views: 3 or more views. COMPARISON: No relevant prior studies available. FINDINGS: Bones/joints: No acute fracture or malalignment. Mild 1st MTP joint degenerative changes. Soft tissues: Normal. IMPRESSION: No acute fracture or malalignment.
--- NOTE | 2021-08-28 12:06 | XR_ITS ---
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 ; Additional info: Accident TECHNIQUE: Imaging protocol: XR Left ankle. Views: 3 or more views. COMPARISON: CR XR FOOT LT MIN 3V 08/28/2021 12:27 PM FINDINGS: Bones/joints: No acute fracture or malalignment. Joint spaces are maintained. Soft tissues: Normal. IMPRESSION: No acute fracture or malalignment.
[2021-08-28 13:05] VITALS: BP 163/83; PULSE 82; RESP 18; TEMP 36.8; O2SAT 96; BMI 34.4
--- NOTE | 2021-08-28 13:38 | HMH.EDUTC ---
[facility] [place] Impression: Left ankle sprain Qualifiers: Encounter type: initial encounter Involved ligament of ankle: posterior talofibular ligament Qualified Code(s): S93.492A - Sprain of other ligament of left ankle, initial encounter Disposition: Home, Self-Care Condition on Discharge: Good Instructions: DI for Ankle Sprain Additional Instructions: Rest, ice, compression and elevation with foot in boot at all times except when sleeping. He can take oxycodone as needed every 4 hours for severe pain. You can take Tylenol and ibuprofen every 8 hours [id number]. Follow-up with orthopedics later this week with Dr. Gold. Prescriptions: methocarbamoL [Methocarbamol] 1,000 mg PO TID PRN 10 Days #30 tab PRN Reason: Moderate Pain Transmission Status: Received by [employer] #[id number] Oxycodone HCl [Oxycodone 5mg tab (IR)] 5 mg PO Q4H PRN #12 tab PRN Reason: Severe Pain Prescription Printed Referrals: Abrahan Gold MD [Staff Physician] - 3 days Forms: Work/School Release Medical Decision Making - Medical Records Medical records reviewed: No: I reviewed the patient's medical records. - Dionte Inquiry Pt receiving controlled substance: No Vital Signs: 08/28/21 13:05 08/28/21 14:40 08/28/21 20:28 Temperature 98.3 F 98.6 F Temperature Source Oral Pulse Rate 73 Pulse Rate [Left] 82 73 Respiratory Rate 18 17 17 Blood Pressure 163/80 H Blood Pressure [Right Arm] 163/83 H Blood Pressure Mean [Right Arm] 109 02 Sat by Pulse Oximetry 96 97 Oxygen Delivery Method Room Air Room Air - Lab Data Lab Results 08/28/21 18:35: WBC 11.2 H, RBC 5.02, Hgb 15.9, Hct 46.4, MCV 92.3, MCH 31.6 H, MCHC 34.2, RDW 13.2, Plt Count 280, MPV 7.8, Neut % (Auto) 72.7, Lymph % (Auto) 21.3, [place] % (Auto) 3.3, Eos % (Auto) 2.1, Baso % (Auto) 0.6, Neut # (Auto) 8.2 H, Lymph # (Auto) 2.4, [place] # (Auto) 0.4, Eos # (Auto) 0.2, Baso # (Auto) 0.1 08/28/21 18:35: Sodium 139, Potassium 3.9, Chloride 101, Carbon Dioxide 29, Anion Gap 12.9, BUN 13, Creatinine 0.80, Estimated Creat Clear 163, Estimated GFR 101, Est GFR ( Amer) 122, Glucose 89, Calcium 9.5, Total Creatine Kinase 228 H Result diagrams: 08/28/21 18:35 08/28/21 18:35 Orders (Tests/Meds): ED MEDICATIONS Discontinued Medications Generic Name Dose Route Start Last Admin Trade Name Freq PRN Reason Stop Dose Admin Iopamidol 100 ml 08/28/21 19:06 08/28/21 19:06 Iopamidol-370 (76%);100ml Bottle IV 08/28/21 19:07 100 ml ONCE ONE Administration Morphine Sulfate 4 mg 08/28/21 17:01 08/28/21 18:44 Morphine 4mg/Ml Syringe IV 08/28/21 17:02 4 mg ONCE ONE Administration Ondansetron HCl 4 mg 08/28/21 17:56 08/28/21 18:44 Ondansetron 4mg/2ml Vial IV 08/28/21 17:57 4 mg ONCE ONE Administration Oxycodone/Acetaminophen 1 each 08/28/21 15:31 08/28/21 15:34 Oxycodone 10mg W/Apap 325mg Tablet PO 08/28/21 15:32 1 each ONCE ONE Administration Sodium Chloride 50 ml 08/28/21 19:06 08/28/21 19:06 0.9 % Sodium Chloride 50 Ml Vial IV 08/28/21 19:07 50 ml ONCE ONE Administration Sodium Chloride 10 ml 08/28/21 19:06 08/28/21 19:06 Sodium Chloride 0.9% 10ml Syr (Rad Only) IV 08/28/21 19:07 10 ml ONCE ONE Administration [facility] [place] - General Stated complaint: WC 08/28 accident lt ankle pain Time Seen by Provider: 08/28/21 13:25 Mode of Arrival: Ambulatory Source of Information: Patient Limitations: No Limitations Description of Symptoms (Recalled from Triage Doc. 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 pt is in severe pain. 07/08. HEENT Symptoms (Recalled from RN notes): No Resp Symptoms (Recalled from RN notes): No Skin Symptoms (Recalled from RN notes): No MS Symptoms (Recalled from RN notes): Yes (L ankle and tib/fib pain) Functional Status (Recalled from RN notes): wnl - History of Present Illness Provider Complaint: pt c/o L a
--- NOTE | 2021-08-28 13:52 | PC.NURSE ---
report given to DARRION RN. ER will notify us when a bed is available.
[2021-08-28 14:40] VITALS: PULSE 73; RESP 17; O2SAT 97; BMI 34.3
--- NOTE | 2021-08-28 17:57 | PC.NURSE ---
Dr Gold at bedside
--- NOTE | 2021-08-28 18:27 | CT_ITS ---
PROCEDURE INFORMATION: Exam: CT Left Lower Extremity With Contrast; Lower Leg Exam date and time: 08/28/2021 6:27 PM Age: 56 years old Clinical indication: Pain; Lower leg; Left; Prior surgery; Additional info: Severe lower extremity pain S/P ankle injury TECHNIQUE: Imaging protocol: CT of the Left lower extremity with intravenous contrast was performed. Exam focused on the lower leg. Radiation optimization: All CT scans at this facility use at least one of these dose optimization techniques: automated exposure control; mA and/or kV adjustment per patient size (includes targeted exams where dose is matched to clinical indication); or iterative reconstruction. Contrast material: ISOVUE; Contrast volume: 100 ml; Contrast route: IV; COMPARISON: CR XR TIBIA FIBULA LT 2V 08/28/2021 12:29 PM FINDINGS: Bones/joints: Cortical irregularity and lucency involving the distal fibula likely reflecting chronic injury. No acute fracture or dislocation. No acute fracture or dislocation. Soft tissues: Normal. IMPRESSION: No acute fracture or dislocation.
[2021-08-28 18:47] LABS: Basophils # 0.1 K/mm3 (0-0.2); Basophils % 0.6 % (0.1-2.0); Eosinophils # 0.2 K/mm3 (0.0-0.4); Eosinophils % 2.1 % (0.1-12.0); Hematocrit 46.4 % (42.0-52.0); Hemoglobin 15.9 g/dL (14.1-18.0); Lymphocytes # 2.4 K/mm3 (0.7-4.5); Lymphocytes % 21.3 % (10-50); Mean Corpuscular HGB Conc 34.2 g/dL (31.8-35.4); Mean Corpuscular Hemoglobin 31.6 pg (27.0-31.2); Mean Corpuscular Volume 92.3 fl (80-94); Mean Platelet Volume 7.8 fl (7.4-10.4); Monocytes # 0.4 K/mm3 (0.1-1.0); Monocytes % 3.3 % (1.7-9.3); Neutrophils # 8.2 K/mm3 (1.8-7.8); Neutrophils % 72.7 % (37.0-80.0); Platelet Count 280 K/mm3 (142-424); Red Blood Count 5.02 M/mm3 (4.60-6.20); Red Cell Distribution Width 13.2 % (11.5-17.5); White Blood Count 11.2 K/mm3 (4.8-10.8)
[2021-08-28 18:52] LABS: Chloride 101 mmol/L (98-107); Potassium 3.9 mmoL/L (3.5-5.1); Sodium 139 mmol/L (136-145)
[2021-08-28 18:54] LABS: Blood Urea Nitrogen 13 mg/dl (9-20); Creatinine Clearance Estimated 163 mL/min (50-200); Estimated Glomerular Filt Rate 101 ml/min (>60); GFR (African American) 122 ML/MIN (>60)
[2021-08-28 18:55] LABS: Anion Gap 12.9 mEq/L (5-15); Calcium 9.5 mg/dl (8.4-10.2); Carbon Dioxide 29 mmol/L (22.0-30.0); Creatine Kinase 228 U/L (55-170); Glucose 89 mg/dl (74-100)
--- NOTE | 2021-08-28 19:02 | PC.NURSE ---
BACK FROM CT
[2021-08-28 20:28] VITALS: BP 163/80; PULSE 73; RESP 17; TEMP 37
--- NOTE | 2021-08-28 20:33 | HMH.EDGENADL ---
ED Disposition Clinical Impression: Left ankle sprain Qualifiers: Encounter type: initial encounter Involved ligament of ankle: posterior talofibular ligament Qualified Code(s): S93.492A - Sprain of other ligament of left ankle, initial encounter Disposition: Home, Self-Care Condition on Discharge: Fair Instructions: DI for Ankle Sprain Additional Instructions: Rest, ice, compression and elevation with foot in boot at all times except when sleeping. He can take oxycodone as needed every 4 hours for severe pain. You can take Tylenol and ibuprofen every 8 hours [id number]. Follow-up with orthopedics later this week with Dr. Gold. Referrals: Abrahan Gold MD [Staff Physician] - 3 days Time of Disposition: 20:42 - Critical Care Critical Care Time: No Attestation: On 08/28/21, the high probability of a clinically significant, sudden or life threatening deterioration of the following system(s) required my full and direct attention, intervention and personal management. The time I documented below is in addition to time spent performing reported procedures but includes the following listed in this critical care notation. Medical Decision Making - Medical Records Medical records reviewed: Yes: I reviewed the patient's medical records. - Dionte Inquiry Pt receiving controlled substance: Yes Dionte was queried for this patient: Yes Risks and benefits of using a controlled substance: were discussed with pt by me Vital Signs: 08/28/21 13:05 08/28/21 14:40 Temperature 98.3 F Temperature Source Oral Pulse Rate [Left] 82 73 Respiratory Rate 18 17 Blood Pressure [Right Arm] 163/83 H Blood Pressure Mean [Right Arm] 109 02 Sat by Pulse Oximetry 96 97 Oxygen Delivery Method Room Air - Lab Data Lab Results 08/28/21 18:35: WBC 11.2 H, RBC 5.02, Hgb 15.9, Hct 46.4, MCV 92.3, MCH 31.6 H, MCHC 34.2, RDW 13.2, Plt Count 280, MPV 7.8, Neut % (Auto) 72.7, Lymph % (Auto) 21.3, [place] % (Auto) 3.3, Eos % (Auto) 2.1, Baso % (Auto) 0.6, Neut # (Auto) 8.2 H, Lymph # (Auto) 2.4, [place] # (Auto) 0.4, Eos # (Auto) 0.2, Baso # (Auto) 0.1 08/28/21 18:35: Sodium 139, Potassium 3.9, Chloride 101, Carbon Dioxide 29, Anion Gap 12.9, BUN 13, Creatinine 0.80, Estimated Creat Clear 163, Estimated GFR 101, Est GFR ( Amer) 122, Glucose 89, Calcium 9.5, Total Creatine Kinase 228 H Result diagrams: 08/28/21 18:35 08/28/21 18:35 Orders (Tests/Meds): ED MEDICATIONS Discontinued Medications Generic Name Dose Route Start Last Admin Trade Name Freq PRN Reason Stop Dose Admin Iopamidol 100 ml 08/28/21 19:06 08/28/21 19:06 Iopamidol-370 (76%);100ml Bottle IV 08/28/21 19:07 100 ml ONCE ONE Administration Morphine Sulfate 4 mg 08/28/21 17:01 08/28/21 18:44 Morphine 4mg/Ml Syringe IV 08/28/21 17:02 4 mg ONCE ONE Administration Ondansetron HCl 4 mg 08/28/21 17:56 08/28/21 18:44 Ondansetron 4mg/2ml Vial IV 08/28/21 17:57 4 mg ONCE ONE Administration Oxycodone/Acetaminophen 1 each 08/28/21 15:31 08/28/21 15:34 Oxycodone 10mg W/Apap 325mg Tablet PO 08/28/21 15:32 1 each ONCE ONE Administration Sodium Chloride 50 ml 08/28/21 19:06 08/28/21 19:06 0.9 % Sodium Chloride 50 Ml Vial IV 08/28/21 19:07 50 ml ONCE ONE Administration Sodium Chloride 10 ml 08/28/21 19:06 08/28/21 19:06 Sodium Chloride 0.9% 10ml Syr (Rad Only) IV 08/28/21 19:07 10 ml ONCE ONE Administration ORDERS Category Date Time Status Urinalysis and Microscopic Stat Lab 08/28/21 19:45 Ordered Medical Decision Narrative: She 6-year-old male with past medical history of coronary artery disease and hardware removal from left lower extremity presents after fall off a forklift with exquisite left ankle pain. Patient has a tight compartment at the lower one third of the fibular area, paresthesias present, coolness of this compartment, and pain out of proportion to exam. Given these thi
--- NOTE | 2021-08-28 20:46 | HMH.ORTHOCON ---
*Admission Date: 08/28/21 *Reason for consult:: Injury left ankle; ? Compartment syndrome *History of present illness: 56-year-old male seen in the ER for consultation regarding his left ankle injury and suspicion for compartment syndrome. Patient presented to the emergency department earlier today with chief complaint of left ankle pain after falling off a forklift at work around 5 AM this morning. He reports sustaining a twisting injury to his left ankle. He describes landing on the ground and turning his ankle in an unusual way. Patient thinks he might have felt a pop. Patient reports developing severe pain and was unable to walk after the injury. He also reports developing paresthesias over the entire left foot immediately after the injury. Patient was initially seen in urgent treatment center, and had negative x-rays. Given his severe pain he was referred over to the emergency department for further evaluation. Patient had a CT scan in the ER which is negative for any acute fractures. He also had compartmental pressure measurements which somewhat equivocal. He does not take blood thinners or any aspirin. He has history of previous ankle fracture with hardware placement which were subsequently removed. Patient continues to report significant pain and paresthesias over the lower leg, foot and ankle. No history of any other injuries. No history of any fevers, chills or rigors. [facility] History I have reviewed the patient's past medical history: Yes Medical History: Reports:: Atherosclerotic Heart Disease, Chronic Obstructive Pulmonary Disease (COPD), Coronary Artery Disease, Hyperlipidemia, Hypertension Denies:: Cancer, Diabetes Mellitus Type 1, Diabetes Mellitus Type 2, MRSA *Have you ever received a pneumonia vaccine?: No *Have you received a flu vaccine this season?: No Laterality Cases: Right: Carpal Tunnel Release Other Surgeries: Yes: Appendectomy, Cardiac Catheterization, Cholecystectomy, Colonoscopy Amputation: No - *Social History Smoking Status: Current every day smoker Tobacco Type: cigarettes # Packs/Day (cigarettes): 1 Alcohol Intake: current Alcohol Intake Frequency:: holidays/special occasions only *Occupational Status:: employed *Travel in the last 8 weeks: None Family Hx:: Asthma, Cancer, Heart Attack, Hyperlipidemia, Hypertension Review of Systems - Review of Systems Review of systems:: pertinent systems reviewed and negative unless documented below - Constitutional Denies chills, Denies fever(s) - Eyes Denies change in vision - ENT Denies abnormal hearing, Denies difficulty swallowing - *Cardiovascular Denies chest pain, Denies shortness of breath - *Respiratory Denies chest congestion, Denies cough - *Gastrointestinal Denies abdominal pain - *Musculoskeletal Reports abnormal walking, Reports joint pain, Reports limited joint movement - *Neurologic Reports abnormal walking, Reports tingling/numbness/burning sensations, Denies seizure-like activity - Endocrine Denies cold intolerance, Denies heat intolerance - Hematologic/Lymphatic Denies easy bleeding, Denies easy bruising Meds Allergies Allergy/AdvReac Type Severity Reaction Status Date / Time No Known Allergies Allergy Verified 10/16/21 13:13 Exam Vital signs and Labs for Last 24 Hours: Temp Pulse Resp BP Pulse Ox 98.6 F 73 17 163/80 H 97 08/28/21 20:28 08/28/21 20:28 08/28/21 20:28 08/28/21 20:28 08/28/21 14:40 Laboratory Results - last 24 hr 08/28/21 18:35: WBC 11.2 H, RBC 5.02, Hgb 15.9, Hct 46.4, MCV 92.3, MCH 31.6 H, MCHC 34.2, RDW 13.2, Plt Count 280, MPV 7.8, Neut % (Auto) 72.7, Lymph % (Auto) 21.3, [place] % (Auto) 3.3, Eos % (Auto) 2.1, Baso % (Auto) 0.6, Neut # (Auto) 8.2 H, Lymph # (Auto) 2.4, [place] # (Auto) 0.4, Eos # (Auto) 0.2, Baso # (Auto) 0.1 08/28/21 18:35: Sodium 139, Potassium 3.9, Chloride 101, Carbon Dioxide 29, Anion Gap 12.9, BUN 13, Creatinine 0.80, Estimated Creat Clear 163, Estimated GFR 1
== END 2021-08-28 21:07 | disposition home or self-care (01) ==
LOC: UTC 11:57 → ER 14:36
PROVIDERS: Emergency Provider Emergency Medicine; PCP Physician Assistant Medical
DX: S93.492A Sprain of other ligament of left ankle, initial encounter (principal); X50.1XXA Overexertion from prolonged static or awkward postures, initial encounter; Y92.63 Factory as the place of occurrence of the external cause; Y99.0 Civilian activity done for income or pay
CPT/HCPCS: 29515; 73590; 73610; 73630; 73701; 80048; 82550; 85025; 99282; J2405; Q9967

== ENCOUNTER → 2021-08-29 14:52 | Outpatient (CLI) | payer BC, SELFPAY ==
[2021-08-29 14:55] LABS: Microscopic, Urine URINE MICROSCOPIC (MICROSCOPIC)
[2021-08-29 15:21] LABS: Basophils # 0.1 K/mm3 (0-0.2); Basophils % 0.9 % (0.1-2.0); Eosinophils # 0.2 K/mm3 (0.0-0.4); Eosinophils % 1.9 % (0.1-12.0); Hematocrit 45.5 % (42.0-52.0); Hemoglobin 15.7 g/dL (14.1-18.0); Lymphocytes % 18.1 % (10-50); Mean Corpuscular HGB Conc 34.6 g/dL (31.8-35.4); Mean Corpuscular Volume 92.5 fl (80-94); Mean Platelet Volume 7.7 fl (7.4-10.4); Monocytes # 0.4 K/mm3 (0.1-1.0); Monocytes % 3.3 % (1.7-9.3); Neutrophils # 8.2 K/mm3 (1.8-7.8); Neutrophils % 75.9 % (37.0-80.0); Platelet Count 249 K/mm3 (142-424); Red Blood Count 4.92 M/mm3 (4.60-6.20); Red Cell Distribution Width 13.3 % (11.5-17.5); White Blood Count 10.8 K/mm3 (4.8-10.8)
[2021-08-29 15:29] LABS: Appearance,Urine CLEAR (Clear); Bilirubin,Urine Negative (Negative); Blood, Urine Negative (Negative); Color,Urine YELLOW (Yellow); Glucose,Urine (UA) Negative (Negative); Ketones,Urine Negative (Negative); Leukocyte Esterase,Urine Negative (Negative); Nitrate,Urine Negative (Negative); Protein,Urine Negative (Negative); Specific Gravity, Urine 1.015 (1.005-1.030)
[2021-08-29 15:37] LABS: Bacteria,Urine Trace /lpf; Mucus,Urine Trace /lpf; Squamous Epithelial Cell,Urine Occasional #/hpf (0-5); WBC,Urine Occasional #/hpf (0-3)
[2021-08-29 15:41] LABS: Anion Gap 8.2 mEq/L (5-15); Blood Urea Nitrogen 15 mg/dl (9-20); Calcium 9.2 mg/dl (8.4-10.2); Carbon Dioxide 31 mmol/L (22.0-30.0); Chloride 100 mmol/L (98-107); Creatine Kinase 234 U/L (55-170); Estimated Glomerular Filt Rate 88 ml/min (>60); GFR (African American) 106 ML/MIN (>60); Glucose 92 mg/dl (74-100); Potassium 4.2 mmoL/L (3.5-5.1); Sodium 135 mmol/L (136-145)
[2021-09-03 17:23] LABS: Myoglobin, Urine <2 ng/mL (0-13)
== END ==
PROVIDERS: Visit Provider Orthopaedic Surgery
DX: Z01.812 Encounter for preprocedural laboratory examination (principal); Z20.822 Contact with and (suspected) exposure to COVID-19; S99.912A Unspecified injury of left ankle, initial encounter
CPT/HCPCS: 36415; 80048; 81001; 82550; 83874; 85025

== ENCOUNTER 2022-01-12 09:41 | Emergency (ER) | payer BC, SELFPAY ==
[2022-01-12 09:42] VITALS: BP 159/91; PULSE 86; RESP 18; TEMP 36.8; O2SAT 99; BMI 34.4
--- NOTE | 2022-01-12 09:51 | XR_ITS ---
PROCEDURE INFORMATION: Exam: XR Right Ankle Exam date and time: 01/12/2022 9:52 AM Age: 56 years old Clinical indication: Injury or trauma; Fall; Swelling (edema); Ankle; Right; Injury date: 01/12/22; Additional info: Twisted it and fell TECHNIQUE: Imaging protocol: XR Right ankle. Views: 3 or more views. COMPARISON: No relevant prior studies available. FINDINGS: Bones/joints: Acute fracture of the distal fibula at the lateral malleolus with minimal displacement. Ankle mortise appears relatively preserved. Soft tissues: Soft tissue swelling laterally. IMPRESSION: Acute lateral malleolus fracture.
[2022-01-12 10:05] VITALS: BP 159/91; PULSE 86; RESP 18; TEMP 36.8; O2SAT 99; BMI 34.3
--- NOTE | 2022-01-12 10:18 | HMH.EDUTC ---
[facility] [place] Clinical Impression: Right fibular fracture Qualifiers: Encounter type: initial encounter Fibula location: distal Fracture type: closed Fracture morphology: unspecified fracture morphology Qualified Code(s): S82.831A - Other fracture of upper and lower end of right fibula, initial encounter for closed fracture Disposition: Home, Self-Care Condition on Discharge: Good Instructions: DI for Ankle Fracture Additional Instructions: No weight bearing this weekend at all. Keep splint on, use crutches. Keep ankle elevated as much as possible. Ice for 20 minutes several times a day. Call ortho at [phone] first thing Friday morning to get an appointment for follow up. Prescriptions: Ibuprofen 800 mg PO TID PRN 10 Days #30 tab PRN Reason: pain Transmission Status: Received by [employer] #[id number] Referrals: Provider,Referral, [Primary Care Provider] - Forms: Work/School Release Time of Disposition: 10:52 Medical Decision Making - Dionte Inquiry Pt receiving controlled substance: No Vital Signs: 01/12/22 09:42 01/12/22 10:05 Temperature 98.3 F 98.3 F Temperature Source Oral Oral Pulse Rate [Left Radial] 86 86 Respiratory Rate 18 18 Blood Pressure [Left Arm] 159/91 H 159/91 H Blood Pressure Mean [Left Arm] 113 113 Blood Pressure Source [Left Arm] Automatic Cuff Automatic Cuff Blood Pressure Position [Left Arm] Sitting Sitting 02 Sat by Pulse Oximetry 99 99 Oxygen Delivery Method Room Air Room Air Orders (Tests/Meds): ED MEDICATIONS Discontinued Medications Generic Name Dose Route Start Last Admin Trade Name Freq PRN Reason Stop Dose Admin Acetaminophen/Codeine Phosphate 1 darwin 01/12/22 10:31 01/12/22 10:34 Acetaminophen 300mg W/Codeine 30mg Take Home Pack (6) PO 01/12/22 10:32 1 darwin ONCE ONE Administration - Radiology Data #1 Image(s): Ankle Image Reviewed: Yes I reviewed the patient's radiology image fracture distal fibula [facility] [place] HPI - General Stated complaint: ao fall 01/12 right ankle pain Time Seen by Provider: 01/12/22 10:18 Mode of Arrival: Ambulatory Source of Information: Patient Limitations: No Limitations Description of Symptoms (Recalled from Triage Doc. by RN): Pt c/o rt ankle pain and swelling after missing the step on his porch this AM at approx 0300. HEENT Symptoms (Recalled from RN notes): No Resp Symptoms (Recalled from RN notes): No Skin Symptoms (Recalled from RN notes): No MS Symptoms (Recalled from RN notes): Yes Functional Status (Recalled from RN notes): WNL - History of Present Illness Provider Complaint: Right ankle pain. Stepped up onto step this am, caught toe of shoe on step, and rolled right ankle. Unable to bear weight. Onset (ago): hour(s) (1) Location: right, lower extremity Relieving factors: none Exacerbating factors: none Associated symptoms: denies other symptoms Treatments prior to arrival: none - Related Data Previous Rx's Medication Instructions Recorded Ibuprofen 800 mg PO TID PRN 10 Days #30 tab 01/12/22 Allergies Allergy/AdvReac Type Severity Reaction Status Date / Time No Known Allergies Allergy Verified 12/18/21 14:47 - Worker's Comp Is this a Worker's Comp case?: No [facility] History - Hepatitis A Screen Drug use history?: No High risk sexual behaviors?: No History of sexually transmitted infection?: No Currently employed?: No Childcare worker?: No Do you have indoor plumbing?: Yes Do you have electricity?: Yes Attestation statement:: This patient has been screened for Hepatitis A risk factors. I have reviewed the patient's past medical history: Yes Medical History: Reports:: Atherosclerotic Heart Disease, Chronic Obstructive Pulmonary Disease (COPD), Coronary Artery Disease, Hyperlipidemia, Hypertension Denies:: Cancer, Diabetes Mellitus Type 1, Diabetes Mellitus Type 2, MRSA Laterality Cases: Left: Other, Right: Arthroscopy Shoulder, Carpal Tunnel Release Other [place]
[2022-01-12 10:55] VITALS: BP 159/91; PULSE 86; RESP 18; TEMP 36.8; O2SAT 99
== END 2022-01-12 11:00 | disposition home or self-care (01) ==
PROVIDERS: Emergency Provider Physician Assistant
DX: S82.831A Other fracture of upper and lower end of right fibula, initial encounter for closed fracture (principal); W01.0XXA Fall on same level from slipping, tripping and stumbling without subsequent striking against object, initial encounter; J44.9 Chronic obstructive pulmonary disease, unspecified; I25.10 Atherosclerotic heart disease of native coronary artery without angina pectoris; I10 Essential (primary) hypertension; E78.5 Hyperlipidemia, unspecified; F17.210 Nicotine dependence, cigarettes, uncomplicated
CPT/HCPCS: 29515; 73610; 99213; G0463

== ENCOUNTER → 2022-01-18 11:09 | Outpatient (CLI) | payer BC, SELFPAY ==
--- NOTE | 2022-01-18 11:16 | XR_ITS ---
FINAL REPORT CLINICAL HISTORY: right ankle fx COMPARISON: 01/12/2022 FINDINGS: RIGHT ANKLE Three views were obtained. Again identified is an oblique fracture of the distal fibular metaphysis with mild distraction. Fracture fragments are stable. There is lateral soft tissue swelling. IMPRESSION: Stable appearing fracture of the distal fibular metaphysis. Reviewed, Interpreted and Dictated by Bud Morataya III, MD Transcribed by Aminata Mccarty Authenticated by Bud Morataya III, MD on 01/18/2022 12:49:20 PM [facility]
== END ==
LOC: RAD 11:10
PROVIDERS: PCP Physician Assistant Medical; Visit Provider Orthopaedic Surgery
DX: S82.401A Unspecified fracture of shaft of right fibula, initial encounter for closed fracture (principal)
CPT/HCPCS: 73610

== ENCOUNTER 2022-01-18 13:06 | Outpatient (RCR) | payer BC, SELFPAY | END 2022-01-18 14:00 | disposition home or self-care (01) | LOC: PT 13:06 | PROVIDERS: Visit Provider Orthopaedic Surgery | DX: S82.401A Unspecified fracture of shaft of right fibula, initial encounter for closed fracture (principal); S82.891A Other fracture of right lower leg, initial encounter for closed fracture | CPT/HCPCS: 97760 ==

== ENCOUNTER → 2022-02-01 12:14 | Outpatient (CLI) | payer BC, SELFPAY ==
--- NOTE | 2022-02-01 12:15 | XR_ITS ---
FINAL REPORT CLINICAL HISTORY: rt ankle fx COMPARISON: January 18, 2022 FINDINGS: RIGHT ANKLE: Three views of the right ankle were obtained. There is an oblique mildly displaced fracture of the distal fibula. The joint spaces and mortise are intact. There is moderate soft tissue swelling over the lateral malleolus. IMPRESSION: Distal fibula fracture with moderate overlying soft tissue swelling. Reviewed, Interpreted and Dictated by Munir Arriaza MD Transcribed by Rao Barraza Authenticated by Munir Arriaza MD on 02/01/2022 01:24:41 PM [facility]
--- NOTE | 2022-02-01 12:46 | XR_ITS ---
FINAL REPORT CLINICAL HISTORY: ankle pain FINDINGS: LEFT ANKLE: Three views of the left ankle were obtained. There is no acute fracture or dislocation. The joint spaces and mortise are intact. There is no soft tissue abnormality. IMPRESSION: No acute process. Reviewed, Interpreted and Dictated by Munir Arriaza MD Transcribed by Rao Barraza Authenticated by Munir Arriaza MD on 02/01/2022 01:24:36 PM [facility]
== END ==
LOC: RAD 12:15
PROVIDERS: PCP Physician Assistant Medical; Visit Provider Orthopaedic Surgery
DX: M25.572 Pain in left ankle and joints of left foot (principal); S82.401A Unspecified fracture of shaft of right fibula, initial encounter for closed fracture; S93.402A Sprain of unspecified ligament of left ankle, initial encounter
CPT/HCPCS: 73610